=== PATIENT | male | born 1955 | race Hispanic/Latino ===

== ENCOUNTER 2017-02-04 05:51 | Day surgery (SDC) | payer OTHER ==
[2017-02-04] MEDS ORDERED: WATER FOR IRRIG STERILE IR ONE (06:54)
[2017-02-04] MEDS ORDERED: DIPRIVAN 10 MG/ML IV ONE ×2 (07:36)
[2017-02-04] MEDS ORDERED: NACL 0.9% 1000 ML 1,000 ML IV SCH (08:00)
--- NOTE | 2017-02-04 08:01 | Short Stay Summary ---
Short Stay Documentation - Allergies and Medications Current Medications: Allergies Penicillins Adverse Reaction (Intermediate, Verified 02/03/17 10:29) Hives erythromycin base Adverse Reaction (Verified 02/04/17 07:24) Hives,SEVERE RASH Home Medications Medication Instructions Recorded Confirmed Last Taken Type Carvedilol 3.125 mg PO BID 02/03/17 02/04/17 02/04/17 History Lisinopril 40 mg PO DAILY 02/03/17 02/04/17 02/04/17 History Lortab 10 mg-300 mg per 15 ML ORAL 1 tab PO PRN 02/03/17 02/04/17 02/03/17 History LIQ Naproxen 500 mg PO DAILY 02/03/17 02/04/17 02/03/17 History Xanax TAB 2 mg PO BID 02/03/17 02/04/17 02/03/17 History Active Medications Sodium Chloride (Nacl 0.9% 1000 Ml) 1,000 mls @ 50 mls/hr IV DIRECT JORDY Last Admin: 02/04/17 07:40 Dose: 50 mls/hr - Brief post op/procedure progress note Date of procedure: 02/04/17 Pre-op diagnosis: 1. Colon cancer screening Post-op diagnosis: same Procedure: Colonoscopy Anesthesia: MAC Findings: as above Surgeon: EZEQUIEL CHAHAL Estimated blood loss: none Pathology: none Condition: stable - Disposition Condition at discharge: Stable Disposition: DC-01 TO HOME OR SELFCARE Short Stay Discharge Plan Activity: no restrictions Weight Bearing Status: Full Weight Bearing Diet: regular, low salt
--- NOTE | 2017-02-04 08:03 | Anesthesia Consultation ---
Anesthesia Consult and Med Hx Date of service: 02/04/17 - Airway Anesthetic Teeth Evaluation: Partials (upper removable) ROM Head & Neck: Adequate Mental/Hyoid Distance: Adequate Mallampati Class: Class II Intubation Access Assessment: Probably Good - Pulmonary Exam CTA: Yes - Cardiac Exam Cardiac Exam: RRR - Pre-Operative Health Status ASA Pre-Surgery Classification: ASA3 Proposed Anesthetic Plan: MAC - Pulmonary Hx Smoking: Yes (1/2 ppd x many years) Hx Sleep Apnea: No - Cardiovascular System Hx Hypertension: Yes Hx Heart Attack/AMI: Yes (1979) - Other Systems Hx Alcohol Use: Yes (6-8 beers/day) Hx Cancer: Yes (bladder ca) - Additional Comments Anesthesia Medical History Comments: NAC
--- NOTE | 2017-02-04 08:04 | Anesthesia Day of Surgery ---
Anesthesia Day of Surgery - Day of Surgery Patient Examined: Yes Patient H&P Reviewed: Yes Patient is NPO: Yes Beta Blockers: Yes
[2017-02-04 08:23] VITALS: BP 122/84
--- NOTE | 2017-02-04 09:35 | Post Anesthesia Evaluation ---
- Post Anesthesia Evaluation Patient Participated: Yes Airway Patent: Yes Stable Respiratory Function: Yes Nausea/Vomiting: No Temp > 96.8F: Yes Pain Manageable: Yes Adequeate Hydration: Yes Anesthesia Complications: No Block Receding Appropriately: Not Applicable Patient on Ventilator: No
== END 2017-02-04 05:52 | disposition home or self-care (01) ==
LOC: GIO 05:51
PROVIDERS: ATTEND Internal Medicine Gastroenterology
DX: Z09 Encounter for follow-up examination after completed treatment for conditions other than malignant neoplasm (principal); K64.0 First degree hemorrhoids; F17.210 Nicotine dependence, cigarettes, uncomplicated; I25.10 Atherosclerotic heart disease of native coronary artery without angina pectoris; Z87.19 Personal history of other diseases of the digestive system; Z88.0 Allergy status to penicillin; Z88.1 Allergy status to other antibiotic agents; Z79.899 Other long term (current) drug therapy; Z72.89 Other problems related to lifestyle; Z83.71 Family history of colonic polyps; Z82.49 Family history of ischemic heart disease and other diseases of the circulatory system; Z80.3 Family history of malignant neoplasm of breast
CPT/HCPCS: 45378; J2704; J7030